=== PATIENT | male | born 1965 | race African-American/Black ===

== ENCOUNTER 2021-10-11 09:27 | Inpatient (IN) | payer MEDICARE, MEDICAID, SELFPAY ==
[2021-10-11] VITALS (8 sets, daily range): BP systolic 114–152; BP diastolic 37–82; PULSE 66–81; RESP 16–20; TEMP 36.3–36.6; O2SAT 92–96
--- NOTE | ~2021-10-11 | XR_ITS ---
EXAMINATION: XR chest 2V DATE: 10/11/2021 10:23 INDICATION: Shortness of breath and pneumonia TECHNIQUE: AP and lateral views of the chest are obtained. COMPARISON: 02/02/2017 FINDINGS: There are patchy opacities of the lung bases. There is no pleural effusion or pneumothorax. The cardiomediastinal silhouette is normal. There is mild thoracic spondylosis. IMPRESSION: 1. Patchy bibasilar airspace opacities, consistent with atelectasis versus pneumonia. Reviewed, dictated and finalized at location A. ERN CHAIN MAKER SUPERVISOR IMPRESSION: 1. Patchy bibasilar airspace opacities, consistent with atelectasis versus pneu monia.
--- NOTE | ~2021-10-11 | CT_ITS ---
EXAMINATION: CT abdomen pelvis wo con DATE: 10/13/2021 10:49 INDICATION: Cailin gangrene TECHNIQUE: Computed tomography (CT) of the abdomen and pelvis was performed without intravenous contr ast. The dose-length product (DLP) was 1458.01 mGy-cm. Automated exposure control and iterative recon struction technique were employed. COMPARISON: None FINDINGS: Minimal dependent atelectasis is present in the lung bases. The heart size is normal. The l iver, spleen, pancreas and right adrenal gland are normal. There is mild thickening of the left adren al gland. Stones are present in the nondistended gallbladder. There is mild wall thickening of the si gmoid colon with mild stranding of the adjacent fat. There is calcified atherosclerosis of the aorta and many of the other arteries. Bilateral inguinal lymphadenopathy is noted which is likely reactive. There is no free intraperitoneal gas or evidence of bowel obstruction. There are tiny foci of gas in the left scrotum. There is mild wall thickening of the urinary bladder. The bladder is mildly disten ded. There is mild lumbar spondylosis. IMPRESSION: 1. Tiny foci of gas in the left scrotum concerning for infection. Recommend correlation with clinical findings and surgical consultation. Finding and recommendation were communicated to the patient's nu rse and apparently the patient had these findings prior to admission at outside facility. 2. Mild wall thickening of the sigmoid colon which may reflect colitis however malignancy could have a similar appearance. Recommend correlation with colonoscopy history. 3. Cholelithiasis without evidence of cholecystitis. 4. Mild wall thickening of the urinary bladder, consistent with cystitis. Reviewed, dictated and finalized at location A. RVISOR MAPPING IMPRESSION: 1. Tiny foci of gas in the left scrotum concerning for infection. Recommend cor relation with clinical findings and surgical consultation. Finding and recommen dation were communicated to the patient's nurse and apparently the patient had these findings prior to admission at outside facility. 2. Mild wall thickening of the sigmoid colon which may reflect colitis however malignancy could have a similar appearance. Recommend correlation with colonosc opy history. 3. Cholelithiasis without evidence of cholecystitis. 4. Mild wall thickening of the urinary bladder, consistent with cystitis.
--- NOTE | ~2021-10-11 | CT_ITS ---
EXAMINATION: CT brain wo con DATE: 10/11/2021 10:18 INDICATION: Altered mental status TECHNIQUE: Computed tomography (CT) of the head was performed without intravenous contrast. Sagittal and coronal reconstructions were performed. The mA was adjusted according to patient size. Iterative reconstruction technique was employed. The dose-length product was 605.33 mGy-cm. COMPARISON: None FINDINGS: No acute fracture. No acute intracranial hemorrhage, acute infarction or abnormal extra axial fluid c ollection. Encephalomalacia related to chronic infarct versus arachnoid cyst at the inferomedial aspe ct of the left cerebellar hemisphere. There is mild scattered white matter hypoattenuation consistent with chronic small vessel ischemic disease. Ventricles are normal and symmetric. No mass/mass effec t. Small left mastoid effusion. Chronic blowout fracture along the inferior wall of the right orbit. Mild mucoperiosteal thickening in the left maxillary and right ethmoid sinuses. There are numerous ti ny densities which could represent either dystrophic calcifications or foreign debris along the scalp , many near the vertex are associated with subcutaneous nodules and associated skin defects. Differen tial would include multiple trichilemmal cysts. There is a region of stranding in the subcutaneous fa t in the right nuchal region suggesting contusion or secondary scarring. IMPRESSION: 1. No acute intracranial process. 2. Encephalomalacia related to chronic infarct versus arachnoid cyst at the inferomedial aspect of th e left cerebellar hemisphere. Correlate for prior history of stroke. 2. Mild scattered white matter hypoattenuation consistent with chronic small vessel ischemic disease. 3. Multiple tiny hyperdensities many associated with subcutaneous scalp nodules. Differential would i nclude foreign bodies related to prior trauma or trichilemmal cysts. 4. Focal region of prominent stranding in the subcutaneous fat at the right nuchal region which could represent a contusion in the acute/subacute setting or more chronic scarring of indeterminate etiolo gy. Reviewed, dictated and finalized at location A. DENT COORDINATOR IMPRESSION: 1. No acute intracranial process. 2. Encephalomalacia related to chronic infarct versus arachnoid cyst at the inf eromedial aspect of the left cerebellar hemisphere. Correlate for prior history of stroke. 2. Mild scattered white matter hypoattenuation consistent with chronic small ve ssel ischemic disease. 3. Multiple tiny hyperdensities many associated with subcutaneous scalp nodules . Differential would include foreign bodies related to prior trauma or trichile mmal cysts. 4. Focal region of prominent stranding in the subcutaneous fat at the right nuc nae region which could represent a contusion in the acute/subacute setting or m ore chronic scarring of indeterminate etiology.
--- NOTE | 2021-10-11 06:57 | ADMGEN ---
This patient, Porter Lam, was admitted to Medical Room 261-01. Patient/family oriented to hospital policies and general routines including ID bracelet, bed and alarms, visiting hours, pain management, procedures, bathroom and other care routines, personal items, smoking policy, room service/diet, and visiting hours. Information on how to activate the Rapid Response Team has been discussed. Patient/Family are encouraged to report perceived risks to care and to ask questions if they do not understand what they are told or what they should do.
--- NOTE | 2021-10-11 07:01 | PM.IMHP ---
H&P: HPI History of Present Illness Date/Time: 10/11/21 07:01 HPI: DC is a 56-year-old gentlemen intermediate resident with the past medical history including but not limited to diabetes mellitus, Hugger the, history of blood clots, chronic left foot infection status post BKA, hyperlipidemia, hypertension, obstructive sleep apnea on CPAP who is referred from outside hospital for management of bloody stool. Patient is currently admitted to [facility] and [facility]. History is very challenging as speech patient is sleepy, drowsy and lethargic at times. Per transfer records the patient had not been on blood thinners recently. He presented to an outside hospital from [place]. Patient had been out with family and reportedly had an episode of emesis. When he returned to [facility] patient was taken to his room and was found to have a bloody stool stool. Was peripheral IV was placed and Zofran was given. per chart review he had been on aspirin and clopidogrel for peripheral vascular disease with peripheral vascular angioplasty plasty and stent. He is not sure if bowel movement was bili now black or tarry or bright red blood. Per nurse he reported was blood red blood per rectum. Reportedly he has been vomiting; the vomitus is yellowish colored, without blood. He denies fevers chills or sweats. He denies any abdominal pain. There is no history of alcohol use or NSAID use. There is no previous documented history of gastric ulcer or GI bleed. Last colonoscopy timing is uncertain. Patient denies any chest pain, palpitation, shortness of breath, syncope. There is no rectal pain. At the outside hospital emergency department on 10/10/2021 the patient was stable and afebrile with the following vital signs temperature 36.8? C, pulse 78, respirations 16, blood pressure 147/63, saturation 92% on room air. Basic labs were drawn. He CBC they reveal a WBC of 19, hemoglobin 15.3, hematocrit 47.3 and a platelet count of 228. His chemistry shows a sodium of 136, potassium 5.4, chloride 101, bicarb 24, BUN 29 and a creatinine of 1.8. LFTs were a bili total bilirubin of 0.3, AST 23 ALT 29 alk-phos 292. Total protein was 8.2. Albumin was 4. Lactate was elevated at 3.4. PT was 11. INR 1.0. Type blood is A positive. Chief Complaint: Lower GI bleeding. Review of Systems Review of Systems: All systems reviewed & are unremarkable except as noted in HPI and below Constitutional: Constitutional: Reports as per HPI, Reports fatigue and Reports weakness Eyes: Eyes: Reports as per HPI, Reports no additional eye complaints and Denies blurry vision ENT: Reports as per HPI and Denies epistaxis Cardiovascular: Cardiovascular: Reports as per HPI, Denies chest pain, Denies pedal edema, Denies leg edema and Denies palpitations Respiratory: Respiratory: Reports as per HPI, Denies cough, Denies dyspnea and Denies dyspnea on exertion Gastrointestinal: Gastrointestinal: Reports as per HPI, Denies abdominal pain, Reports hematochezia, Reports diarrhea, Reports nausea and Denies vomiting Genitourinary: Genitourinary: Reports no additional male genitourinary complaints and Reports as per HPI Musculoskeletal: Musculoskeletal: Reports no additional musculoskeletal complaints and Reports as per HPI Integumentary/Breasts: Skin/Breast: Reports system reviewed and no additional complaints, except as docu and Reports as per HPI Neurologic: Reports system reviewed and no additional complaints, except as documented and Reports as per HPI Psychiatric: Psychiatric: Reports no additional psychiatric complaints and Reports as per HPI [facility] Past Medical History Medical History (Updated 10/11/21 @ 09:37 by Imelda Lozano MD) Essential (primary) hypertension Hemiplegia and hemiparesis following cerebral infarction affecting left dominant side Hyperlipidemia Peripheral vascular disease Social History Social History Years s
[2021-10-11 09:45] LABS: Basophils Percent Auto 0.2 % (0.2-1.2); Eosinophils Percent Auto 0.1 % (0-4.4); Hematocrit 45.9 % (42.0-52.0); Hemoglobin 14.7 g/dL (14.0-18.0); Immature Granulocyte Absolute 0.07 K/mm3 (0.00-0.031); Immature Granulocyte Percent A 0.5 % (0-0.5); Lymphocytes Absolute Auto 0.99 K/mm3 (0.9-3.2); Lymphocytes Percent Auto 7.6 % (18.3-44.2); Mean Corpuscular Hemoglobin 26.9 pg (26-34); Mean Corpuscular Volume 84.1 fl (80-100); Mean Platelet Volume 12.7 fl (7.4-10.4); Monocytes Absolute Auto 0.5 K/mm3 (0.1-0.6); Monocytes Percent Auto 3.5 % (2.6-8.5); Neutrophils Absolute Auto 11.4 K/mm3 (1.3-6.7); Neutrophils Percent Auto 88.1 % (45.5-73.1); Platelet Count Result 219 k/mm3 (150-375); Red Blood Count 5.46 M/mm3 (4.6-6.20); Red Cell Distribution Width 14.6 % (11.5-14.5)
[2021-10-11 10:13] LABS: Anion Gap 7 mmol/L (8-16); Blood Urea Nitrogen 29 mg/dL (9-20); Calcium 9.3 mg/dL (8.4-10.2); Carbon Dioxide 26 mmol/L (22-30); Chloride 104 mmol/L (98-107); Estimated Glomerular Filt Rate 54; Glucose 413 mg/dL (65-110); Potassium 5.4 mmol/L (3.4-5.0); Sodium 137 mmol/L (137-145)
[2021-10-11 10:15] LABS: Hemoglobin A1C 10.1 % (<5.7); Lactic Acid Reflex 2.5 mmol/L (0.7-2.1); Magnesium 1.9 mg/dL (1.6-2.3)
[2021-10-11 11:46] LABS: Glucose Point of Care 397 mg/dl (65-105)
[2021-10-11] MEDS: INSULIN ASPART (*BKC) 100 UNITS/ML 30 UNITS SUB-Q ×2 (12:19→17:42)
[2021-10-11] MEDS: INSULIN GLARGINE (*BKC) 100 UNITS/ML 30 UNITS SUB-Q (12:21)
[2021-10-11] MEDS: LACTATED RINGERS 1,000 ML 100 ML IV CONT ×2 (12:26→23:09)
[2021-10-11 12:55] LABS: Reflex Lactic Acid Yes or No Add Lactic
[2021-10-11 13:22] LABS: Lactic Acid 1.9 mmol/L (0.7-2.1)
[2021-10-11 15:35] LABS: Anion Gap 6 mmol/L (8-16); Blood Urea Nitrogen 31 mg/dL (9-20); Calcium 9.4 mg/dL (8.4-10.2); Carbon Dioxide 29 mmol/L (22-30); Chloride 105 mmol/L (98-107); Estimated Glomerular Filt Rate 50; Glucose 327 mg/dL (65-110); Potassium 4.3 mmol/L (3.4-5.0); Sodium 140 mmol/L (137-145)
[2021-10-11 16:38] LABS: Glucose Point of Care 302 mg/dl (65-105)
[2021-10-11 21:09] LABS: Hematocrit 42.1 % (42.0-52.0); Hemoglobin 13.7 g/dL (14.0-18.0)
[2021-10-11 21:11] LABS: Glucose Point of Care 178 mg/dl (65-105)
[2021-10-11 22:29] LABS: Glucose Point of Care 152 mg/dl (65-105)
[2021-10-12] VITALS (8 sets, daily range): BP systolic 114–158; BP diastolic 45–62; PULSE 62–87; RESP 16–20; TEMP 36.1–36.7; O2SAT 92–99
[2021-10-12 05:32] LABS: Hematocrit 42.8 % (42.0-52.0); Hemoglobin 13.6 g/dL (14.0-18.0); Mean Corpuscular HGB Conc 31.8 g/dl (32-36); Mean Corpuscular Hemoglobin 26.9 pg (26-34); Mean Corpuscular Volume 84.8 fl (80-100); Mean Platelet Volume 12.3 fl (7.4-10.4); Platelet Count Result 200 k/mm3 (150-375); Red Blood Count 5.05 M/mm3 (4.6-6.20); Red Cell Distribution Width 14.6 % (11.5-14.5); White Blood Count 9.1 K/mm3 (4.5-10.0)
[2021-10-12 05:45] LABS: Anion Gap 5 mmol/L (8-16); Blood Urea Nitrogen 31 mg/dL (9-20); Calcium 9.1 mg/dL (8.4-10.2); Carbon Dioxide 29 mmol/L (22-30); Chloride 106 mmol/L (98-107); Estimated Glomerular Filt Rate 58; Glucose 260 mg/dL (65-110); Sodium 140 mmol/L (137-145)
[2021-10-12 06:37] LABS: Add Urine Microscopic? YES; Appearance Urine Turbid (Clear); Bilirubin Urine Negative (Negative); Blood Urine 2+ (Negative); Budding Yeast Urine Present /hpf; Color Urine Amber (Yellow); Glucose Urine UA 3+ mg/dL (Negative); Ketones Urine Negative (Negative); Leukocyte Esterase Ur 3+ LEU/UL (NEGATIVE); Nitrate Urine Negative (Negative); Protein Urine 2+ mg/dL (Negative); Specific Grav Ur 1.016 (1.001-1.035); Urobilinogen Urine Negative mg/dL (<2.0); WBC Clumps Urine Present /HPF; WBC Urine >75 /hpf (0-3)
[2021-10-12 07:22] LABS: IFOB Positive Control Positive; Immunochemical Fecal Occult Bl Positive (N)
[2021-10-12 08:27] LABS: Glucose Point of Care 246 mg/dl (65-105)
[2021-10-12] MEDS: INSULIN ASPART (*BKC) 100 UNITS/ML 30 UNITS SUB-Q (09:12)
[2021-10-12] MEDS: LACTATED RINGERS 1,000 ML 100 ML IV CONT ×2 (09:13→21:06)
[2021-10-12] MEDS: PANTOPRAZOLE 40 MG TABLET PO (09:13)
--- NOTE | 2021-10-12 09:34 | PM.IMPN ---
Progress Note: A&P Assessment and Plan (1) Lower GI bleeding: Code(s): K92.2 - Gastrointestinal hemorrhage, unspecified Status: Acute Assessment and Plan: By history patient has had a couple of blood the lower bowel movements. Currently patient is hemodynamically stable and afebrile. His hemoglobin has remained stable while in our facility. We will monitor the patient with vital signs every 4 hours, telemetry, serial hemoglobin. Gastroenterology has been consulted for for further management. (2) Altered mental status: Code(s): R41.82 - Altered mental status, unspecified Status: Acute Assessment and Plan: During my evaluation the patient blood sugars more than 400. This may have been contributing to his sleepiness. After engagement patient's communication is adapted. (3) Type 2 diabetes mellitus with diabetic neuropathy, unspecified: Code(s): E11.40 - Type 2 diabetes mellitus with diabetic neuropathy, unspecified Status: Acute Assessment and Plan: Uncontrolled diabetes may be related to missed dose of insulin. At baseline he is on the strong regimen of insulin Lantus and lisinopril. Freely patient is insulin resistant. We started him 1 modest IV fluid hydration and his blood sugars improving with reinstatement of his home blood pressure regimen. Continue to monitor blood sugar every 6 hours. Will start insulin sliding scale coverage. Continue Lantus 60 units q.h.s. and lispro 30 units every 8 hours. (4) Chronic obstructive pulmonary disease, unspecified: Code(s): J44.9 - Chronic obstructive pulmonary disease, unspecified Status: Acute Assessment and Plan: Currently no evidence of acute exacerbation. Will start nebulization as needed for symptoms. (5) Morbid (severe) obesity due to excess calories: Code(s): E66.01 - Morbid (severe) obesity due to excess calories Status: Acute Assessment and Plan: Patient will encourage to observe calorie restriction and increase his physical activity level. Currently patient is not amenable to counseling. Will revisit this issue later. (6) Hyperlipidemia: Code(s): E78.5 - Hyperlipidemia, unspecified Status: Acute Assessment and Plan: Continue home statin. (7) Essential (primary) hypertension: Code(s): I10 - Essential (primary) hypertension Status: Acute Assessment and Plan: Resume home blood pressure regimen to target a blood pressure of 140/90 (8) Gastro-esophageal reflux disease without esophagitis: Code(s): K21.9 - Gastro-esophageal reflux disease without esophagitis Status: Acute Assessment and Plan: start pantoprazole. (9) Other abnormalities of gait and mobility: Code(s): R26.89 - Other abnormalities of gait and mobility Status: Acute Assessment and Plan: Fall precautions. PT and OT evaluation at the time of discharge (10) Acute kidney injury: Code(s): N17.9 - Acute kidney failure, unspecified Status: Acute Subjective Date/time seen: 10/12/21 09:35 Review of Systems Review of Systems: All systems reviewed & are unremarkable except as noted in HPI and below Constitutional: Constitutional: Reports as per HPI, Reports fatigue and Reports weakness Eyes: Eyes: Reports as per HPI, Reports no additional eye complaints and Denies blurry vision ENT: Reports as per HPI and Denies epistaxis Cardiovascular: Cardiovascular: Reports as per HPI, Denies chest pain, Denies pedal edema, Denies leg edema, Denies palpitations, Denies dyspnea and Denies dyspnea on exertion Respiratory: Respiratory: Reports as per HPI, Denies cough, Denies dyspnea and Denies dyspnea on exertion Gastrointestinal: Gastrointestinal: Reports as per HPI, Denies abdominal pain, Reports hematochezia, Reports diarrhea, Reports nausea and Denies vomiting Genitourinary: Genitourinary: Reports no additional male genitou
--- NOTE | 2021-10-12 11:28 | PM.IMPN ---
Progress Note: A&P Assessment and Plan (1) Lower GI bleeding: Code(s): K92.2 - Gastrointestinal hemorrhage, unspecified Status: Acute Assessment and Plan: By history patient has had a couple of blood the lower bowel movements. Currently patient is hemodynamically stable and afebrile. His hemoglobin has remained stable while in our facility. Today Hb is 13.7. We will monitor the patient with vital signs every 4 hours, telemetry, serial hemoglobin, and serial abdominal exams. Gastroenterology has been consulted for for further management and we are awaiting their recommendations. (2) Altered mental status: Code(s): R41.82 - Altered mental status, unspecified Status: Acute Assessment and Plan: Head CT did not reveal any acute lesions. On admission, during my evaluation the patient blood sugars more than 400. This may have been contributing to his sleepiness. After engagement patient's communication is adapted. (3) Type 2 diabetes mellitus with diabetic neuropathy, unspecified: Code(s): E11.40 - Type 2 diabetes mellitus with diabetic neuropathy, unspecified Status: Acute Assessment and Plan: Uncontrolled diabetes may be related to missed dose of insulin. At baseline he is on the strong regimen of insulin Lantus and lipro. Patient requires large doses of insulin and is clearly insulin resistant. After reinstatement of his home insulin regimen. Fasting blood glucose was 260. Accuchecks was 246. Continue to monitor accuckecs. Continue insulin sliding scale coverage. Continue Lantus 60 units q.h.s. and lispro 30 units every 8 hours before meals. (4) Chronic obstructive pulmonary disease, unspecified: Code(s): J44.9 - Chronic obstructive pulmonary disease, unspecified Status: Acute Assessment and Plan: Currently no evidence of acute exacerbation. Continue nebulization as needed for symptoms. (5) Morbid (severe) obesity due to excess calories: Code(s): E66.01 - Morbid (severe) obesity due to excess calories Status: Acute Assessment and Plan: Patient will encourage to observe calorie restriction and increase his physical activity level. Currently patient is not amenable to counseling. Will revisit this issue later. (6) Hyperlipidemia: Code(s): E78.5 - Hyperlipidemia, unspecified Status: Acute Assessment and Plan: Continue home statin. (7) Essential (primary) hypertension: Code(s): I10 - Essential (primary) hypertension Status: Acute Assessment and Plan: Continue home blood pressure regimen to target a blood pressure of 140/90. (8) Gastro-esophageal reflux disease without esophagitis: Code(s): K21.9 - Gastro-esophageal reflux disease without esophagitis Status: Acute Assessment and Plan: start pantoprazole. (9) Other abnormalities of gait and mobility: Code(s): R26.89 - Other abnormalities of gait and mobility Status: Acute Assessment and Plan: Fall precautions. PT and OT evaluation at the time of discharge (10) Acute kidney injury: Code(s): N17.9 - Acute kidney failure, unspecified Status: Acute Assessment and Plan: Under dislike creatinine. Creatinine on admission was 1.7. Currently improving. May be a acute nonoliguric kidney injury in the setting of hypotension and GI bleeding. The likely kidney may be related to long-standing uncontrolled diabetes. Avoid nephrotoxic medications. Monitor blood pressure, daily intake and output, monitor electrolytes. Subjective Date/time seen: 10/12/21 11:28 S: Patient is examined at the bedside. He is sleepy and drowsy. He did not seem to be in any distress. He did not have any complaints. Review of Systems Review of Systems: All systems reviewed & are unremarkable except as noted in HPI and below Constitutional: Constitutional: Reports as per HPI, Reports fatigue and Reports weaknes
[2021-10-12 11:46] LABS: Glucose Point of Care 189 mg/dl (65-105)
[2021-10-12] MEDS: INSULIN ASPART (*BKC) 100 UNITS/ML 10 UNITS SUB-Q ×2 (13:39→17:28)
[2021-10-12 14:26] LABS: Hematocrit 41.2 % (42.0-52.0); Hemoglobin 13.5 g/dL (14.0-18.0)
--- NOTE | 2021-10-12 14:28 | WPDGICN ---
Assessment and Plan Assessment and plan (1) Lower GI bleeding: Code(s): K92.2 - Gastrointestinal hemorrhage, unspecified Status: Acute Assessment and Plan: hemodynamically stable, will trend h/h will need colonoscopy probably Thursday could be diverticular bleed, perianal, avm, etc (2) Acute kidney injury: Code(s): N17.9 - Acute kidney failure, unspecified Status: Acute Assessment and Plan: medical treatment (3) Altered mental status: Code(s): R41.82 - Altered mental status, unspecified Status: Acute Assessment and Plan: resolved, he is fully awake now (4) Type 2 diabetes mellitus with diabetic neuropathy, unspecified: Code(s): E11.40 - Type 2 diabetes mellitus with diabetic neuropathy, unspecified Status: Acute Assessment and Plan: on treatment by primary (5) Chronic obstructive pulmonary disease, unspecified: Code(s): J44.9 - Chronic obstructive pulmonary disease, unspecified Status: Acute (6) Morbid (severe) obesity due to excess calories: Code(s): E66.01 - Morbid (severe) obesity due to excess calories Status: Acute (7) Peripheral vascular disease: Code(s): I73.9 - Peripheral vascular disease, unspecified Status: Acute Assessment and Plan: on blood thinners, on hold for now GI Consult Note Consult date/time: 10/12/21 14:28 Reason for consult: rectal bleeding HPI: Porter Lam is a 56 year old male with past medical history diabetes mellitus with foot infection status post BKA, hypertension, obstructive sleep apnea on CPAP, PAD on plavix and aspirin and CVA who [facility]. He started passing blood in stools and take to another hospital but then transferred here. He initially was drowsy but now he is fully awake and alert. He also found to have uncontrolled DM with glucose 400's. WBC 13, hemoglobin 14, creatinine 1.5. No abdominal pain. He could not tell me when was his last colonoscopy. Review of Systems Constitutional: Constitutional: Denies chills Eyes: Eyes: Reports no additional eye complaints ENT: Reports Normal hearing present Cardiovascular: Cardiovascular: Denies chest pain Respiratory: Respiratory: Denies dyspnea Gastrointestinal: Gastrointestinal: Reports hematochezia Genitourinary: Genitourinary: Denies dysuria Musculoskeletal: Musculoskeletal: Denies neck pain Integumentary/Breasts: Skin/Breast: Denies dry skin Neurologic: Reports confusion (on arrival) Psychiatric: Psychiatric: Reports no additional psychiatric complaints PMFSH Past Medical History Medical History (Updated 10/12/21 @ 09:36 by Imelda Lozano MD) Essential (primary) hypertension Hemiplegia and hemiparesis following cerebral infarction affecting left dominant side Hyperlipidemia Peripheral vascular disease Social History Social History Years smoked: 45 Smoking status: Current every day smoker Alcohol intake: never Substance use: never Spiritual care concerns: No Meds Home Medications and Allergies Home Medications Medication Instructions Recorded Confirmed Type amlodipine 10 mg PO DAILY 10/11/21 10/11/21 History aspirin 81 mg PO DAILY 10/11/21 10/11/21 History clopidogrel 75 mg PO DAILY 10/11/21 10/11/21 History ferrous sulfate 325 mg PO DAILY 10/11/21 10/11/21 History insulin aspart U-100 [Novolog 30 unit SUBCUT TID 10/11/21 10/11/21 History U-100 Insulin aspart] insulin glargine [Lantus Solostar 60 unit SUBCUT HS 10/11/21 10/11/21 History U-100 Insulin] lisinopril 40 mg PO DAILY 10/11/21 10/11/21 History lovastatin 40 mg PO DAILY 10/11/21 10/11/21 History magnesium hydroxide [Milk of 400 mg PO DAILY PRN 10/11/21 10/11/21 History Magnesia] metoprolol succinate 12.5 mg PO DAILY 10/11/21 10/11/21 History mupirocin 1 applic TOPICAL DAILY 10/11/21 10/11/21 History olopatadine 1 drp EACH EYE BID
[2021-10-12 16:31] LABS: Glucose Point of Care 150 mg/dl (65-105)
[2021-10-12 20:13] LABS: Hematocrit 42.2 % (42.0-52.0); Hemoglobin 13.5 g/dL (14.0-18.0)
[2021-10-12] MEDS: INSULIN GLARGINE (*BKC) 100 UNITS/ML 30 UNITS SUB-Q (21:07)
[2021-10-12 21:29] LABS: Glucose Point of Care 189 mg/dl (65-105)
[2021-10-12 23:28] LABS: Creatinine Urine 133.3 mg/dL; Urea Random Urine 914 MG/DL
[2021-10-12 23:30] LABS: Sodium Urine Random 104 meq/L
[2021-10-13] VITALS (13 sets, daily range): BP systolic 137–161; BP diastolic 55–67; PULSE 61–65; RESP 16–18; TEMP 36.1–36.8; O2SAT 93–100
[2021-10-13] MEDS: LACTATED RINGERS 1,000 ML 100 ML IV CONT (05:17)
[2021-10-13 05:30] LABS: Hematocrit 40.7 % (42.0-52.0); Hemoglobin 13.1 g/dL (14.0-18.0); Mean Corpuscular HGB Conc 32.2 g/dl (32-36); Mean Corpuscular Hemoglobin 26.9 pg (26-34); Mean Corpuscular Volume 83.6 fl (80-100); Mean Platelet Volume 11.6 fl (7.4-10.4); Platelet Count Result 189 k/mm3 (150-375); Red Blood Count 4.87 M/mm3 (4.6-6.20); Red Cell Distribution Width 14.1 % (11.5-14.5); White Blood Count 8.6 K/mm3 (4.5-10.0)
[2021-10-13 05:51] LABS: Anion Gap 4 mmol/L (8-16); Blood Urea Nitrogen 23 mg/dL (9-20); Calcium 9.1 mg/dL (8.4-10.2); Carbon Dioxide 29 mmol/L (22-30); Chloride 105 mmol/L (98-107); Estimated CRCL calculation 78 ml/min; Estimated Glomerular Filt Rate > 60; Glucose 209 mg/dL (65-110); Potassium 3.6 mmol/L (3.4-5.0); Sodium 138 mmol/L (137-145)
[2021-10-13 07:50] LABS: Glucose Point of Care 223 mg/dl (65-105)
[2021-10-13] MEDS: PANTOPRAZOLE 40 MG TABLET PO (08:58)
[2021-10-13] MEDS: INSULIN ASPART (*BKC) 100 UNITS/ML 10 UNITS SUB-Q ×3 (08:59→17:03)
--- NOTE | 2021-10-13 10:16 | PM.IMPN ---
Progress Note: A&P Assessment and Plan (1) Lower GI bleeding: Code(s): K92.2 - Gastrointestinal hemorrhage, unspecified Status: Acute Assessment and Plan: By history patient has had a couple of blood the lower bowel movements. Currently patient is hemodynamically stable and afebrile. His hemoglobin has remained stable while in our facility. Today Hb is 13.7. We will monitor the patient with vital signs every 4 hours, telemetry, serial hemoglobin, and serial abdominal exams. Gastroenterology has been consulted for for further management and we are awaiting their recommendations. 10/13/2021 Decrease blood per rectum. Will continue to monitor hemoglobin. Continue current plan of care and treatment. (2) Altered mental status: Code(s): R41.82 - Altered mental status, unspecified Status: Acute Assessment and Plan: Head CT did not reveal any acute lesions. On admission, during my evaluation the patient blood sugars more than 400. This may have been contributing to his sleepiness. After engagement patient's communication is adapted. 10/13/2021 Altered mental status has resolved. (3) Type 2 diabetes mellitus with diabetic neuropathy, unspecified: Code(s): E11.40 - Type 2 diabetes mellitus with diabetic neuropathy, unspecified Status: Acute Assessment and Plan: Uncontrolled diabetes may be related to missed dose of insulin. At baseline he is on the strong regimen of insulin Lantus and lipro. Patient requires large doses of insulin and is clearly insulin resistant. After reinstatement of his home insulin regimen. Fasting blood glucose was 260. Accuchecks was 246. Continue to monitor accuckecs. Continue insulin sliding scale coverage. Continue Lantus 60 units q.h.s. and lispro 30 units every 8 hours before meals. (4) Chronic obstructive pulmonary disease, unspecified: Code(s): J44.9 - Chronic obstructive pulmonary disease, unspecified Status: Acute Assessment and Plan: Currently no evidence of acute exacerbation. Continue nebulization as needed for symptoms. (5) Morbid (severe) obesity due to excess calories: Code(s): E66.01 - Morbid (severe) obesity due to excess calories Status: Acute Assessment and Plan: Patient will encourage to observe calorie restriction and increase his physical activity level. Currently patient is not amenable to counseling. Will revisit this issue later. (6) Hyperlipidemia: Code(s): E78.5 - Hyperlipidemia, unspecified Status: Acute Assessment and Plan: Continue home statin. (7) Essential (primary) hypertension: Code(s): I10 - Essential (primary) hypertension Status: Acute Assessment and Plan: Continue home blood pressure regimen to target a blood pressure of 140/90. (8) Gastro-esophageal reflux disease without esophagitis: Code(s): K21.9 - Gastro-esophageal reflux disease without esophagitis Status: Acute Assessment and Plan: start pantoprazole. (9) Other abnormalities of gait and mobility: Code(s): R26.89 - Other abnormalities of gait and mobility Status: Acute Assessment and Plan: Fall precautions. PT and OT evaluation at the time of discharge (10) Acute kidney injury: Code(s): N17.9 - Acute kidney failure, unspecified Status: Acute Assessment and Plan: Under dislike creatinine. Creatinine on admission was 1.7. Currently improving. May be a acute nonoliguric kidney injury in the setting of hypotension and GI bleeding. The likely kidney may be related to long-standing uncontrolled diabetes. Avoid nephrotoxic medications. Monitor blood pressure, daily intake and output, monitor electrolytes. 10/13/2021 Patient is gradually improving. Blood per rectum is decreased. Altered mental status has resolved for. Will continue monitor electrolytes and hemoglobin, increase activity as tolerated. Subjective Dre
--- NOTE | 2021-10-13 10:30 | WPDGIPROGNO ---
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 (4) Essential (primary) hypertension: Code(s): I10 - Essential (primary) hypertension Status: Acute (5) Altered mental status: Code(s): R41.82 - Altered mental status, unspecified Status: Acute Assessment and Plan: resolved (6) Acquired absence of right leg below knee: Code(s): Z89.511 - Acquired absence of right leg below knee Status: Acute (7) History of stroke: Code(s): Z86.73 - Personal history of transient ischemic attack (TIA), and cerebral infarction without residual deficits Status: Acute Subjective Date/time seen: 10/13/21 10:30 Interval history: no changes, still noted some blood in stool. Review of Systems Review of Systems: All systems reviewed & are unremarkable except as noted in HPI and below Exam Const: General: comfortable, no acute distress and ill appearing chronically Nutritional Appearance: obese HENMT: General nose exam: Normal nares present Eyes: General: appearance normal, both eyes and all related structures Neck: Neck: supple Resp: Auscultation: clear to auscultation bilaterally Cardio: Rate: regular rate GI: Inspection: non-distended GI Palp: Yes Soft to palpation and No Tenderness to palpation present (GI) Auscultation: normal bowel sounds Skin: General skin exam: no rashes or lesions noted Neuro: Speech: normal speech Other: chronic weakness left arm from previous stroke Extrem: Other: s/p Rt BKA Objective Data Vital Signs Vital Signs: Vital Signs - 24 hr 10/12/21 12:00 10/12/21 16:00 10/12/21 20:00 Temperature 97.5 F L 97.8 F 97 F L Pulse Rate 71 63 64 Respiratory Rate 17 18 16 Blood Pressure 158/57 H 155/62 H 137/55 L Pulse Oximetry 96 95 92 10/12/21 23:53 10/13/21 00:00 10/13/21 03:51 Temperature 97.1 F L 97 F L Pulse Rate 62 64 63 Respiratory Rate 18 18 Blood Pressure 132/49 L 137/57 L Pulse Oximetry 92 93 10/13/21 04:00 10/13/21 08:00 10/13/21 09:52 Temperature 97.8 F Pulse Rate 61 64 65 Respiratory Rate 18 Blood Pressure 161/62 H Pulse Oximetry 96 Intake/Output Intake/Output: Intake & Output 10/10/21 10/11/21 10/12/21 10/13/21 23:59 23:59 23:59 23:59 Intake Total 1600 3680 1220 Output Total 400 300 Balance 1600 3280 920 Meds/Results Medications: Active Medications Generic Name Dose Route Start Last Admin Trade Name Freq PRN Reason Stop Dose Admin Dextrose 12.5 gm 10/11/21 09:27 Dextrose 50% 25 Gm/50 Ml Syringe IV PUSH PRN PRN Hypoglycemia Protocol Glucagon 1 mg 10/11/21 09:27 Glucagon For Inj 1 Mg Vial IM PRN PRN Hypoglycemia Protocol Glucose 15 gm 10/11/21 09:27 Glucose Oral Gel 15 Gm Of Glucse In 37.5 Gm Tube PO PRN PRN Hypoglycemia Protocol Dextrose 1,000 mls @ 100 mls/hr 10/11/21 09:27 Dextrose 5% 1,000 Ml IVPB PRN PRN Hypoglycemia Protocol Lactated Ringer's 1,000 mls @ 83 mls/hr 10/11/21 10:50 10/13/21 05:17 Lr - Lactated Ringers Iv IV CONT 100 mls/hr .Q12H3M NIA Administration Piperacillin/Tazobactam/Dextrose 3.375 gm in 50 mls @ 100 mls/hr 10/13/21 06:00 10/13/21 05:46 Zosyn 3.375 Gm/D5w 50ml Pm IVPB Infused Q6H NIA Infusion Insulin Aspart 10 units 10/12/21 13:05 10/13/21 08:59 Insulin Aspart
[2021-10-13 12:04] LABS: Glucose Point of Care 272 mg/dl (65-105)
--- NOTE | 2021-10-13 13:22 | PC.NURSE ---
Jose Alfredo was contacted in regards to the patients preliminary culture results from the wound on his left scrotum along with the patients most recent documentation from the wound care physician, Dr. Salguero. Diamond stated that the patient has had I&D's for this problem before, and had consistent issues for over the last 3 years. The patient sees Dr. Salguero weekly about the issue. [facility] to fax over the most recent records for the patients medical records and for the general surgeon.
[2021-10-13 16:37] LABS: Glucose Point of Care 229 mg/dl (65-105)
[2021-10-13] MEDS: BISACODYL 5 MG TABLET EC 20 MG PO (17:01)
[2021-10-13] MEDS: polyethylene glycoL 3350 238 GM BOTTLE PO (17:02)
[2021-10-13] MEDS: CLINDAMYCIN 600 MG/D5W 50 ML 600 MG/50 ML PIGGYBACK 100 MG IVPB (17:02)
[2021-10-13] MEDS: LACTATED RINGERS 1,000 ML 83 ML IV CONT (19:58)
[2021-10-13] MEDS: INSULIN GLARGINE (*BKC) 100 UNITS/ML 30 UNITS SUB-Q (21:27)
[2021-10-13 21:36] LABS: Glucose Point of Care 247 mg/dl (65-105)
[2021-10-14] VITALS (14 sets, daily range): BP systolic 103–170; BP diastolic 45–89; PULSE 55–70; RESP 14–20; TEMP 35.6–36.6; O2SAT 96–100
[2021-10-14] MEDS: CLINDAMYCIN 600 MG/D5W 50 ML 600 MG/50 ML PIGGYBACK 100 MG IVPB ×4 (00:19→18:10)
[2021-10-14] MEDS: MAGNESIUM CITRATE 300 ML BTL PO (04:05)
[2021-10-14 05:18] LABS: Glucose Point of Care 194 mg/dl (65-105)
[2021-10-14 06:51] LABS: Alanine Aminotransferase 28 U/L (4-50); Albumin Level 3.8 g/dL (3.5-5.1); Alkaline Phosphatase 182 U/L (38-126); Anion Gap 8 mmol/L (8-16); Aspartate Amino Transferase 21 U/L (17-59); Bilirubin,Total 0.4 mg/dL (0.2-1.3); Blood Urea Nitrogen 13 mg/dL (9-20); Calcium 9.3 mg/dL (8.4-10.2); Carbon Dioxide 23 mmol/L (22-30); Chloride 104 mmol/L (98-107); Estimated CRCL calculation 87 ml/min; Estimated Glomerular Filt Rate > 60; Glucose 218 mg/dL (65-110); Potassium 3.4 mmol/L (3.4-5.0); Sodium 135 mmol/L (137-145)
[2021-10-14 07:13] LABS: Hematocrit 41.7 % (42.0-52.0); Hemoglobin 13.5 g/dL (14.0-18.0); Mean Corpuscular HGB Conc 32.4 g/dl (32-36); Mean Corpuscular Volume 83.4 fl (80-100); Mean Platelet Volume 11.6 fl (7.4-10.4); Platelet Count Result 220 k/mm3 (150-375); Red Cell Distribution Width 14.1 % (11.5-14.5); White Blood Count 10.5 K/mm3 (4.5-10.0)
[2021-10-14] MEDS: INSULIN ASPART (*BKC) 100 UNITS/ML 10 UNITS SUB-Q ×3 (08:35→16:57)
[2021-10-14 11:55] LABS: Glucose Point of Care 160 mg/dl (65-105)
--- NOTE | 2021-10-14 12:53 | PM.CNGS ---
Assessment and Plan Assessment and plan (1) Open wound of scrotum: Code(s): S31.30XA - Unspecified open wound of scrotum and testes, initial encounter Status: Acute Assessment and Plan: CT scan reviewed. He has a chronic scrotal wound that has some yellow drainage. No evidence of Cailin's gangrene. There is no abscess or acute infection that requires surgical intervention at this time. We would recommend continuing with local wound care and have the patient follow-up with the wound care physician that has been following this as an outpatient after being treated for the suspected GI bleed. Thank you for allowing us to see the patient in consultation and please let us know if there are any surgical needs in the future. (2) Lower GI bleeding: Code(s): K92.2 - Gastrointestinal hemorrhage, unspecified Status: Acute Assessment and Plan: This is the primary reason for his admission. GI has been consulted and appears to be planning for a colonoscopy. (3) Altered mental status: Code(s): R41.82 - Altered mental status, unspecified Status: Acute (4) Type 2 diabetes mellitus with diabetic neuropathy, unspecified: Code(s): E11.40 - Type 2 diabetes mellitus with diabetic neuropathy, unspecified Status: Acute (5) Morbid (severe) obesity due to excess calories: Code(s): E66.01 - Morbid (severe) obesity due to excess calories Status: Acute (6) Peripheral vascular disease: Code(s): I73.9 - Peripheral vascular disease, unspecified Status: Acute (7) Essential (primary) hypertension: Code(s): I10 - Essential (primary) hypertension Status: Acute (8) Antiplatelet or antithrombotic long-term use: Code(s): Z79.02 - metallurgical engineer (current) use of antithrombotics/antiplatelets Status: Acute Assessment and Plan: Plavix and ASA currently on hold with current GI bleed and plan for colonoscopy. Additional Plan I have discussed the patient's case and plan of care with Dr. Brothers. History of Present Illness Consult details Consult date: 10/14/21 Reason for consult: other (Findings on CT scan suggesting tiny foci of gas in the left scrotum, concern for Cailin's) Requesting physician: Nima Betts MD Narrative: This is a 56 year old male with past medical history diabetes mellitus with foot infection status post BKA, hypertension, obstructive sleep apnea on CPAP, PAD on Plavix and aspirin, and CVA. The patient is a poor historian and his history is primarily obtained from what he is able to report and review of his electronic medical record. He apparently presented to an outside hospital from [facility] for evaluation of bloody stools. He was transferred to [place] for further treatment and admitted to the Hospitalist. GI has been consulted and is planning to proceed with a colonoscopy. His hemoglobin has remained stable and is 13.1 this morning. He was found to be hyperglycemic with a blood sugar around 400 and hgbA1C was 10.1. CT scan of the abdomen and pelvis ordered yesterday for scrotal wound and showed a tiny foci of gas in the left scrotum, mild wall thickening of the sigmoid colon, cholelithiasis, and mild wall thickening of the urinary bladder. Wound care has been consulted for scrotal wound. Our service was consulted for concern of Cailin's gangrene. The patient is now seen on the medical floor. He does report seeing a patient centered care specialist, Dr. Zamora, in [facility] for nearly a year for his scrotal wound. He reports it has improved and they have been following this as an outpatient. He denies having pain, but states it is uncomfortable at times with positioning. Records have been requested from the patient centered care specialist and it appears he was last seen on 10/08/21 when he had an excisional debridement with a curette by Dr. Zamora. He had prescribed topical antibiotics and antifungal cream for his scrotum. The reports also suggests that this wound
--- NOTE | 2021-10-14 13:45 | PM.IMPN ---
Progress Note: A&P Assessment and Plan (1) Lower GI bleeding: Code(s): K92.2 - Gastrointestinal hemorrhage, unspecified Status: Acute Assessment and Plan: Reported a couple of blood the lower bowel movements, denies any today Currently patient is hemodynamically stable and afebrile Hgb [id number]-->13.5 today GI following, recommendations appreciated Colonoscopy today Monitor H/H Tele (2) Altered mental status: Code(s): R41.82 - Altered mental status, unspecified Status: Acute Assessment and Plan: Head CT did not reveal any acute lesions On admission, blood sugars more than 400 Resolved (3) Type 2 diabetes mellitus with diabetic neuropathy, unspecified: Code(s): E11.40 - Type 2 diabetes mellitus with diabetic neuropathy, unspecified Status: Acute Assessment and Plan: Uncontrolled diabetes may be related to missed dose of insulin At baseline he is on the strong regimen of insulin Lantus and lispro Improved, BG range 139-223 since yesterday morning Continue to accuckecs, SSI. Continue Lantus 60 units q.h.s. and lispro 30 units every 8 hours before meals Monitor (4) Chronic obstructive pulmonary disease, unspecified: Code(s): J44.9 - Chronic obstructive pulmonary disease, unspecified Status: Acute Assessment and Plan: Currently no evidence of acute exacerbation Continue nebulization as needed for symptoms (5) Morbid (severe) obesity due to excess calories: Code(s): E66.01 - Morbid (severe) obesity due to excess calories Status: Acute Assessment and Plan: Continue to encouraged to observe calorie restriction and increase his physical activity level May benefit from DM educator and flat examiner (6) Hyperlipidemia: Code(s): E78.5 - Hyperlipidemia, unspecified Status: Acute Assessment and Plan: Continue home statin (7) Essential (primary) hypertension: Code(s): I10 - Essential (primary) hypertension Status: Acute Assessment and Plan: Continue home blood pressure regimen to target a blood pressure of 140/90 (8) Gastro-esophageal reflux disease without esophagitis: Code(s): K21.9 - Gastro-esophageal reflux disease without esophagitis Status: Acute Assessment and Plan: Continue pantoprazole (9) Other abnormalities of gait and mobility: Code(s): R26.89 - Other abnormalities of gait and mobility Status: Acute Assessment and Plan: Fall precautions PT and OT evaluation prior to discharge (10) Acute kidney injury: Code(s): N17.9 - Acute kidney failure, unspecified Status: Acute Assessment and Plan: Resolved Creatinine on admission was 1.7. 1.1 today Avoid nephrotoxic medications and hypertension Monitor I/O Follow BMP (11) Open wound of scrotum: Code(s): S31.30XA - Unspecified open wound of scrotum and testes, initial encounter Status: Acute Assessment and Plan: Chronic, POA GS consulted, recommendations appreciated No abscess or acute infection Continue WC WC following Subjective Date/time seen: 10/14/21 13:45 Interval history: Pt seen this morning; labs, vs, and diagnostic reports reviewed; denies any bloody stools, N/V/D Review of Systems Review of Systems: All systems reviewed & are unremarkable except as noted in HPI and below Exam Const: General: no acute distress, alert and awake Orientation/consciousness: patient oriented x3 HENMT: Head: normocephalic and atraumatic Ears: hearing grossly normal bilaterally Face and sinus: face symmetric Mouth: Yes Normal oral and palatal mucosa present Eyes: EOM: EOMs intact bilaterally Neck: Neck: full ROM, trachea midline and no JVD Resp: Effort & Inspection: normal respiratory effort Auscultation: clear to auscultation bilaterally and diminished lung sounds Cardio: Jugular venous distension: no JVD Rate: regular rate Rhythm: regular rhythm He
[2021-10-14 13:49] LABS: Glucose Point of Care 139 mg/dl (65-105)
[2021-10-14] MEDS: LACTATED RINGERS 1,000 ML 150 ML IV CONT (13:53)
--- NOTE | 2021-10-14 14:17 | WPDANESEPPF ---
Anes - Initial Pre Proc Eval Procedure: Operation Date: 10/14/21 16:45 Proposed Procedures p Colonoscopy - Chuck Hatfield MD Date/Time: 10/14/21 14:17 Surgeon: Chong Ocampo MD Pre Op Diagnosis: Acute lower GI bleeding Patient Data Age: 56 Gender: M Height: 1.8 m Weight: 123.4 kg Last Vital Signs Temp 35.6 C L 10/14/21 13:50 Pulse 58 L 10/14/21 13:50 Resp 16 10/14/21 13:50 BP 149/70 H 10/14/21 13:50 Pulse Ox 97 10/14/21 13:50 Allergies Allergy/AdvReac Type Severity Reaction Status Date / Time No Known Allergies Allergy Verified 10/14/21 14:16 Home Medications Medication Instructions Recorded Confirmed Type amlodipine 10 mg PO DAILY 10/11/21 10/14/21 History aspirin 81 mg PO DAILY 10/11/21 10/14/21 History clopidogrel 75 mg PO DAILY 10/11/21 10/14/21 History ferrous sulfate 325 mg PO DAILY 10/11/21 10/14/21 History insulin aspart U-100 [Novolog 30 unit SUBCUT TID 10/11/21 10/14/21 History U-100 Insulin aspart] insulin glargine [Lantus Solostar 60 unit SUBCUT HS 10/11/21 10/14/21 History U-100 Insulin] lisinopril 40 mg PO DAILY 10/11/21 10/14/21 History lovastatin 40 mg PO DAILY 10/11/21 10/14/21 History magnesium hydroxide [Milk of 400 mg PO DAILY PRN 10/11/21 10/14/21 History Magnesia] metoprolol succinate 12.5 mg PO DAILY 10/11/21 10/14/21 History mupirocin 1 applic TOPICAL DAILY 10/11/21 10/14/21 History olopatadine 1 drp EACH EYE BID PRN 10/11/21 10/14/21 History omeprazole 40 mg PO DAILY 10/11/21 10/14/21 History oxycodone-acetaminophen 1 tablet PO Q6H PRN 10/11/21 10/14/21 History Laboratory Tests 10/13/21 10/13/21 10/14/21 16:33 21:27 05:08 WBC RBC Hgb Hct MCV MCH MCHC RDW Plt Count MPV Sodium Potassium Chloride Carbon Dioxide Anion Gap BUN Creatinine Estim Creat Clear Calc Estimated GFR Glucose POC Capillary Glucose 229 mg/dl H mg/dl 247 mg/dl H mg/dl 194 mg/dl H mg/dl (65-105) (65-105) (65-105) Calcium Total Bilirubin AST ALT Alkaline Phosphatase Total Protein Albumin 10/14/21 10/14/21 10/14/21 06:23 06:23 11:49 WBC 10.5 K/mm3 H K/mm3 (4.5-10.0) RBC 5.00 M/mm3 M/mm3 (4.6-6.20) Hgb 13.5 g/dL L g/dL (14.0-18.0) Hct 41.7 % L % (42.0-52.0) MCV 83.4 fl fl (80-100) MCH 27.0 pg pg (26-34) MCHC 32.4 g/dl g/dl (32-36) RDW 14.1 % % (11.5-14.5) Plt Count 220 k/mm3 k/mm3 (150-375) MPV 11.6 fl H fl (7.4-10.4) Sodium 135 mmol/L L mmol/L (137-145) Potassium 3.4 mmol/L mmol/L (3.4-5.0) Chloride 104 mmol/L mmol/L (98-107) Carbon Dioxide 23 mmol/L mmol/L (22-30) Anion Gap 8 mmol/L mmol/L (8-16) BUN 13 mg/dL D mg/dL (9-20) Creatinine 1.10 mg/dL mg/dL (0.7-1.3) Estim Creat Clear Calc 87 ml/min ml/min Estimated GFR > 60 (59 - ) Glucose 218 mg/dL H mg/dL (65-110) POC Capillary Glucose 160 mg/dl H mg/dl (65-105) Calcium 9.3 mg/dL mg/dL (8.4-10.2) Total Bilirubin 0.4 mg/dL mg/dL (0.2-1.3) AST 21 U/L U/L (17-59) ALT 28 U/L U/L (4-50) Alkaline Phosphatase 182 U/L H U/L (38-126) Total Protein 7.0 g/dL g/dL (6.3-8.2) Albumin 3.8 g/dL g/dL (3.5-5.1) 10/14/21 13:47 WBC RBC Hgb Hct MCV MCH MCHC RDW Plt Count MPV Sodium Potassium Chloride Carbon Dioxide Anion Gap BUN Creatinine
[2021-10-14 16:18] LABS: Glucose Point of Care 112 mg/dl (65-105)
[2021-10-14 17:56] LABS: Glucose Point of Care 123 mg/dl (65-105)
[2021-10-14] MEDS: LACTATED RINGERS 1,000 ML 83 ML IV CONT (20:55)
[2021-10-14] MEDS: MORPHINE SULFATE (*CRX) 2 MG/ML INJ 1 MG IV PUSH (21:00)
[2021-10-14] MEDS: INSULIN GLARGINE (*BKC) 100 UNITS/ML 30 UNITS SUB-Q (21:03)
[2021-10-14 22:10] LABS: Glucose Point of Care 174 mg/dl (65-105)
[2021-10-15] VITALS (8 sets, daily range): BP systolic 121–161; BP diastolic 47–79; PULSE 57–77; RESP 14–20; TEMP 36.4–36.6; O2SAT 94–100
[2021-10-15] MEDS: CLINDAMYCIN 600 MG/D5W 50 ML 600 MG/50 ML PIGGYBACK 100 MG IVPB ×3 (00:22→11:33)
[2021-10-15 05:39] LABS: Hematocrit 41.8 % (42.0-52.0); Hemoglobin 13.3 g/dL (14.0-18.0); Mean Corpuscular HGB Conc 31.8 g/dl (32-36); Mean Corpuscular Hemoglobin 26.4 pg (26-34); Mean Corpuscular Volume 82.9 fl (80-100); Mean Platelet Volume 11.4 fl (7.4-10.4); Platelet Count Result 205 k/mm3 (150-375); Red Blood Count 5.04 M/mm3 (4.6-6.20); White Blood Count 8.1 K/mm3 (4.5-10.0)
[2021-10-15 05:43] LABS: Anion Gap 7 mmol/L (8-16); Blood Urea Nitrogen 11 mg/dL (9-20); Calcium 8.9 mg/dL (8.4-10.2); Carbon Dioxide 25 mmol/L (22-30); Chloride 104 mmol/L (98-107); Estimated CRCL calculation 80 ml/min; Estimated Glomerular Filt Rate > 60; Glucose 230 mg/dL (65-110); Potassium 3.4 mmol/L (3.4-5.0); Sodium 136 mmol/L (137-145)
[2021-10-15 07:49] LABS: Glucose Point of Care 227 mg/dl (65-105)
[2021-10-15] MEDS: PANTOPRAZOLE 40 MG TABLET PO (08:09)
[2021-10-15] MEDS: INSULIN ASPART (*BKC) 100 UNITS/ML 10 UNITS SUB-Q ×3 (08:09→17:12)
[2021-10-15] MEDS: MORPHINE SULFATE (*CRX) 2 MG/ML INJ 1 MG IV PUSH (08:15)
--- NOTE | 2021-10-15 09:32 | WPDANESPN ---
Anes - Prog Note Post-Op Date/Time: 10/15/21 09:32 Cardiovascular status: normal Respiratory status: normal Airway patency: baseline Mental status: baseline Post-Op hydration status: normal Vital Signs: Last Vital Signs Temp 36.5 C 10/15/21 06:00 Pulse 59 L 10/15/21 06:00 Resp 20 10/15/21 06:00 BP 155/79 H 10/15/21 06:00 Pulse Ox 94 10/15/21 06:00 Pain Score (VAS): 0 I/O: Intake & Output 10/14/21 10/15/21 10/15/21 23:59 07:59 15:59 Intake Total 490 150 236 Output Total 750 Balance -260 150 236 Laboratory Tests 10/15/21 05:22 10/15/21 05:22 10/14/21 10/14/21 10/14/21 11:49 13:47 16:10 WBC RBC Hgb Hct MCV MCH MCHC RDW Plt Count MPV Sodium Potassium Chloride Carbon Dioxide Anion Gap BUN Creatinine Estim Creat Clear Calc Estimated GFR Glucose POC Capillary Glucose 160 H 139 H 112 H Calcium 10/14/21 10/14/21 10/15/21 17:29 20:53 05:22 WBC 8.1 RBC 5.04 Hgb 13.3 L Hct 41.8 L MCV 82.9 MCH 26.4 MCHC 31.8 L RDW 14.0 Plt Count 205 MPV 11.4 H Sodium Potassium Chloride Carbon Dioxide Anion Gap BUN Creatinine Estim Creat Clear Calc Estimated GFR Glucose POC Capillary Glucose 123 H 174 H Calcium 10/15/21 10/15/21 05:22 07:42 WBC RBC Hgb Hct MCV MCH MCHC RDW Plt Count MPV Sodium 136 L Potassium 3.4 Chloride 104 Carbon Dioxide 25 Anion Gap 7 L BUN 11 Creatinine 1.20 Estim Creat Clear Calc 80 Estimated GFR > 60 Glucose 230 H POC Capillary Glucose 227 H Calcium 8.9 Microbiology 10/13/21 11:11 Urine Clean Catch Urine Culture - Final Post-procedural complaints: none Patient Feedback: Patient satisfied with anesthetic care.
--- NOTE | 2021-10-15 10:45 | PC.NURSE ---
On 10/15/21, the student, [Rianna Joseph ], provided care and completed [facility] documentation on this patient. I have reviewed the student's documentation and agree with the findings.
[2021-10-15 11:24] LABS: Glucose Point of Care 217 mg/dl (65-105)
[2021-10-15] MEDS: LACTATED RINGERS 1,000 ML 83 ML IV CONT (13:13)
--- NOTE | 2021-10-15 15:18 | PM.DS ---
DS: Admitting Diagnosis Discharge Date 10/15/2021 Admitting Diagnosis Lower GI bleeding DS: Discharge Diagnosis Discharge Diagnosis (1) Lower GI bleeding: Code(s): K92.2 - Gastrointestinal hemorrhage, unspecified Status: Acute Assessment and Plan: Reported a couple of blood the lower bowel movements, denies any today Currently patient is hemodynamically stable and afebrile Hgb stable 13.7-->13.5-->13.3 today GI followed, recommendations appreciated Colonoscopy, no bleeding--> colonoscopy in 1 year (2) Altered mental status: Code(s): R41.82 - Altered mental status, unspecified Status: Acute Assessment and Plan: Head CT did not reveal any acute lesions On admission, blood sugars more than 400 Resolved (3) Type 2 diabetes mellitus with diabetic neuropathy, unspecified: Code(s): E11.40 - Type 2 diabetes mellitus with diabetic neuropathy, unspecified Status: Acute Assessment and Plan: Uncontrolled diabetes may be related to missed dose of insulin At baseline he is on the strong regimen of insulin Lantus and lispro Improved, BG 230 this morning Accuckecs, SSI. Lantus 60 units q.h.s. and lispro 30 units every 8 hours before meals (4) Chronic obstructive pulmonary disease, unspecified: Code(s): J44.9 - Chronic obstructive pulmonary disease, unspecified Status: Acute Assessment and Plan: Currently no evidence of acute exacerbation Continue nebulization as needed for symptoms (5) Morbid (severe) obesity due to excess calories: Code(s): E66.01 - Morbid (severe) obesity due to excess calories Status: Acute Assessment and Plan: Continue to encouraged to observe calorie restriction and increase his physical activity level May benefit from DM educator and screen writer (6) Hyperlipidemia: Code(s): E78.5 - Hyperlipidemia, unspecified Status: Acute Assessment and Plan: Continue home statin (7) Essential (primary) hypertension: Code(s): I10 - Essential (primary) hypertension Status: Acute Assessment and Plan: Continue home blood pressure regimen to target a blood pressure of 140/90 (8) Gastro-esophageal reflux disease without esophagitis: Code(s): K21.9 - Gastro-esophageal reflux disease without esophagitis Status: Acute Assessment and Plan: Continue pantoprazole (9) Other abnormalities of gait and mobility: Code(s): R26.89 - Other abnormalities of gait and mobility Status: Acute Assessment and Plan: Fall precautions PT and OT evaluation (10) Acute kidney injury: Code(s): N17.9 - Acute kidney failure, unspecified Status: Acute Assessment and Plan: Resolved Creatinine on admission was 1.7. 1.1-->1.2 today Avoid nephrotoxic medications and hypertension (11) Open wound of scrotum: Code(s): S31.30XA - Unspecified open wound of scrotum and testes, initial encounter Status: Acute Assessment and Plan: Chronic, POA GS consulted, recommendations appreciated No abscess or acute infection Continue WC DS: Summary Hospital Course Hospital Course: 56-year-old gentlemen longterm resident with the past medical history including but not limited to diabetes mellitus, blood clots, chronic left foot infection status post BKA, hyperlipidemia, hypertension, obstructive sleep apnea on CPAP who is referred from outside hospital for management of bloody stool. Patient is currently admitted to [facility]. History is very challenging as speech patient is sleepy, drowsy and lethargic at times. Per transfer records the patient had not been on blood thinners recently. He presented to an outside hospital in [place]. Patient had been out with family and reportedly had an episode of emesis. When he returned to [place] patient was taken to his room and was found to have a bloody stool stool. Was peripheral IV was jolene
[2021-10-15 15:41] LABS: EDCOVIDSCREEN Negative (Negative)
--- NOTE | 2021-10-15 16:40 | WPDGIPROGNO ---
Progress Note: A&P Assessment and Plan (1) Ischemic colitis: Code(s): K55.9 - Vascular disorder of intestine, unspecified Status: Acute Assessment and Plan: on antibiotics, doing well and tolerating diet pending biopsies repeat colonoscopy in 1 year to assess for healing he can go home by GI standpoint (2) Type 2 diabetes mellitus with diabetic neuropathy, unspecified: Code(s): E11.40 - Type 2 diabetes mellitus with diabetic neuropathy, unspecified Status: Acute Assessment and Plan: on medical treatment (3) Chronic obstructive pulmonary disease, unspecified: Code(s): J44.9 - Chronic obstructive pulmonary disease, unspecified Status: Acute (4) Lower GI bleeding: Code(s): K92.2 - Gastrointestinal hemorrhage, unspecified Status: Acute Assessment and Plan: h/h stable, due to colitis (5) Altered mental status: Code(s): R41.82 - Altered mental status, unspecified Status: Acute Assessment and Plan: resolved (6) Acute kidney injury: Code(s): N17.9 - Acute kidney failure, unspecified Status: Acute Assessment and Plan: resolved Subjective Date/time seen: 10/15/21 16:40 Interval history: colonoscopy yesterday showed left sided colitis most likely ischemic. He is doing great today, no pain and no bleeding. Tolerating diet. Review of Systems Review of Systems: All systems reviewed & are unremarkable except as noted in HPI and below Exam Const: General: comfortable, no acute distress and ill appearing chronically Nutritional Appearance: obese HENMT: General nose exam: Normal nares present Eyes: General: appearance normal, both eyes and all related structures Neck: Neck: supple Resp: Auscultation: clear to auscultation bilaterally Cardio: Rate: regular rate GI: Inspection: non-distended GI Palp: Yes Soft to palpation and No Tenderness to palpation present (GI) Auscultation: normal bowel sounds Skin: General skin exam: no rashes or lesions noted Neuro: Speech: normal speech Other: chronic weakness left arm from previous stroke Extrem: Other: s/p Rt BKA Objective Data Vital Signs Vital Signs: Vital Signs - 24 hr 10/14/21 17:32 10/14/21 20:39 10/14/21 20:40 Temperature 97.8 F 97.6 F Pulse Rate 59 L 55 L Respiratory Rate 18 18 Blood Pressure 170/69 H 139/66 155/89 H Pulse Oximetry 100 98 10/14/21 22:30 10/15/21 00:00 10/15/21 04:00 Temperature Pulse Rate 70 77 57 L Respiratory Rate Blood Pressure Pulse Oximetry 10/15/21 06:00 10/15/21 08:00 10/15/21 10:00 Temperature 97.7 F 97.5 F L Pulse Rate 59 L 73 60 Respiratory Rate 20 14 Blood Pressure 155/79 H 121/47 L Pulse Oximetry 94 99 10/15/21 12:00 10/15/21 14:00 10/15/21 15:02 Temperature 97.8 F Pulse Rate 69 61 62 Respiratory Rate 16 Blood Pressure 161/62 H 149/51 H Pulse Oximetry 100 Intake/Output Intake/Output: Intake & Output 10/12/21 10/13/21 10/14/21 10/15/21 23:59 23:59 23:59 23:59 Intake Total 3680 3030 1790 1758 Output Total 400 300 750 Balance 3280 2730 1040 1758 Meds/Results Medications: Active Medications Generic Name Dose Route Start Last Admin Trade Name Freq PRN Reason Stop Dose Admin Dextrose 12.5 gm 10/11/21 09:27 Dextrose 50% 25 Gm/50 Ml Syringe IV PUSH PRN PRN Hypoglycemia Protocol Glucagon 1 mg 10/11/21 09:27 Glucagon For Inj 1 Mg Vial IM PRN PRN Hypoglycemia Protocol Glucose 15 gm 10/11/21 09:27 Glucose Oral Gel 15 Gm Of Glucse In 37.5 Gm Tube PO PRN PRN Hypoglycemia Protocol Dextrose 1,000 mls @ 100 mls/hr 10/11/21 09:27 Dextrose 5% 1,000 Ml IVPB PRN PRN Hypoglycemia Protocol Lactated Ringer's 1,000 mls @ 83 mls/hr 10/11/21 10:50 10/15/21 13:13 Lr - Lactated Ringers Iv IV CONT 83 mls/hr .Q12H3M NIA Administration Piperacillin/Tazobactam/Dextrose 3.375 g
[2021-10-15 16:47] LABS: Glucose Point of Care 262 mg/dl (65-105)
== END 2021-10-15 19:24 | DRG 394 ==
PROVIDERS: Internal Medicine; Internal Medicine Gastroenterology; Admitting Provider Internal Medicine; PCP Internal Medicine; Visit Provider Nurse Practitioner Adult Health
PROC: 0DJD8ZZ Inspection of Lower Intestinal Tract, Via Natural or Artificial Opening Endoscopic (ICD-10-PCS; CPT 45378; principal; 2021-10-14 16:45)
DX: K55.9 Vascular disorder of intestine, unspecified (principal); K92.2 Gastrointestinal hemorrhage, unspecified; I69.354 Hemiplegia and hemiparesis following cerebral infarction affecting left non-dominant side; N17.9 Acute kidney failure, unspecified; Z86.718 Personal history of other venous thrombosis and embolism; Z89.512 Acquired absence of left leg below knee; Z20.822 Contact with and (suspected) exposure to COVID-19; E78.5 Hyperlipidemia, unspecified; I10 Essential (primary) hypertension; G47.33 Obstructive sleep apnea (adult) (pediatric); Z79.82 Long term (current) use of aspirin; Z95.820 Peripheral vascular angioplasty status with implants and grafts; E11.51 Type 2 diabetes mellitus with diabetic peripheral angiopathy without gangrene; F17.200 Nicotine dependence, unspecified, uncomplicated; Z79.4 Long term (current) use of insulin; E11.40 Type 2 diabetes mellitus with diabetic neuropathy, unspecified; E11.65 Type 2 diabetes mellitus with hyperglycemia; J44.9 Chronic obstructive pulmonary disease, unspecified; E66.01 Morbid (severe) obesity due to excess calories; Z68.37 Body mass index [BMI] 37.0-37.9, adult; K21.9 Gastro-esophageal reflux disease without esophagitis; R26.89 Other abnormalities of gait and mobility; I95.9 Hypotension, unspecified; S31.30XA Unspecified open wound of scrotum and testes, initial encounter; X58.XXXA Exposure to other specified factors, initial encounter; Y93.9 Activity, unspecified; Y92.9 Unspecified place or not applicable; Y99.9 Unspecified external cause status
CPT/HCPCS: 36415; 70450; 71046; 74176; 80048; 80053; 81001; 82274; 82570; 82948; 83036; 83605; 83735; 84300; 84540; 85014; 85018; 85025; 85027; 87040; 87086; 87426; 88305; A9270; C9803; J1815; J2270; J2543; J2704; J7120